=== PATIENT | male | born 2000 | race Caucasian/White ===

== ENCOUNTER 2018-03-08 03:33 | Emergency (ER) | payer BC ==
[2018-03-08 03:50] VITALS: TEMP 97.9
[2018-03-08] MEDS ORDERED: KETOROLAC TROMETHAMINE INJ 30 MG/ML VIAL IV ONE (03:56)
[2018-03-08] MEDS ORDERED: MORPHINE SULFATE INJ 10 MG/ML VIAL ONE (04:08)
[2018-03-08] MEDS ORDERED: MORPHINE SULFATE INJ 10 MG/ML VIAL IV ONE ×3 (04:08→04:54)
--- NOTE | 2018-03-08 04:09 | ED.PDOC ---
History of Present Illness - General Chief Complaint: Abdominal Pain Stated Complaint: right abdomen pain Time Seen by Provider: 03/08/18 03:55 Information Source: patient Exam Limitations: no limitations - History of Present Illness Initial Comments: Patient comes in today with severe abdominal pain that awoke him from sleep. Patient states about 2 AM he was suddenly awakened by feeling "like a donkey kicked him in his abdomen". Patient states the pain comes and goes but in severe waves of 10/10 with a sharpness in the quality and no radiation. He states he had a similar episode but nowhere near this severe to 3 months ago but it resolved on its own and no workup was performed at that time. He's had no nausea, emesis, or diarrhea. He denies any reflux or states he often does have abdominal distention and bloating after eating. Patient has no past medical history but did have a gastric sleeve surgery a year ago. Patient does not smoke but vapes, he does not drink nor take illicit drugs. He has no fever , chills, cough, or cold symptoms. Abdominal Pain Onset Location: RUQ Pain Radiation: no radiation Quality: severe, sharpness, waxing/waning Timing/Duration: 1-3 hours Improving Factors: nothing Worsening Factors: nothing Associated Symptoms: denies symptoms Review of Systems - Review of Systems Constitutional: States: no symptoms reported. Denies: chills, diaphoresis, fever, weakness EENTM: States: no symptoms reported. Denies: eye pain, nose congestion, throat pain Respiratory: States: no symptoms reported. Denies: cough, short of breath, wheezing Cardiology: States: no symptoms reported. Denies: chest pain, palpitations Gastrointestinal/Abdominal: States: see HPI. Denies: constipation, diarrhea, nausea, vomiting Genitourinary: States: no symptoms reported Musculoskeletal: States: no symptoms reported Skin: States: no symptoms reported Neurological: States: no symptoms reported Endocrine: States: no symptoms reported Past Medical History (General) - Patient Medical History Hx Seizures: No Hx Stroke: No Hx Dementia: No Hx Asthma: No Hx of COPD: No Hx Cardiac Disorders: No Hx Congestive Heart Failure: No Hx Pacemaker: No Hx Hypertension: No Hx Thyroid Disease: No Hx Diabetes: No Hx Gastroesophageal Reflux: No Hx Renal Disease: No Hx Cancer: No Hx of HIV: No Hx Hepatitis C: No Hx MRSA: No Surgical History: other - T&A, gastric sleeve - Vaccination History Hx Tetanus, Diphtheria Vaccination: Yes Hx Influenza Vaccination: No - Social History Hx Tobacco Use: Yes Hx Alcohol Use: No Family Medical History - Family History Mother Family History: Unknown Physical Exam - Physical Exam General Appearance: Alert, Obvious distress Eyes, Ears, Nose, Throat Exam: PERRL/EOMI, normal ENT inspection, TMs normal, pharynx normal Neck: non-tender, full range of motion, supple, normal inspection Respiratory: chest non-tender, lungs clear, normal breath sounds, no respiratory distress Cardiovascular/Chest: normal peripheral pulses, regular rate, rhythm, no edema, no gallop, no JVD, no murmur Gastrointestinal/Abdominal: normal bowel sounds, soft, other - non distended, TTP with no rebound or guarding in RUQ, negative heel tap Back Exam: normal inspection, no CVA tenderness Neurologic: alert, oriented x 3 Progress - Progress Progress: patient states pain has improved from a 10 to an 8 with the morphine that was previously given. He does still look very uncomfortable however. Discussed with him findings of cholelithiasis without acute cholecystitis or signs of obstruction. Patient does understand diagnosis and once we get pain under control plan is to have him follow-up as an outpatient for evaluation to decide if he requires surgical intervention. Patient should be on a low-fat diet in the meantime. 03/08/18 04:57 03/08/18 05:18 patient with pain resolution with second dose and will be discharged. - Results/Orders Results/Orders: 03/08/18 03:56 Abdoment/Pelvis w/o Contrast [CT] Stat Laboratory Results WBC 9.4 K/mm3 (4.8-10.8) 03/08/18 03:56 RBC 5.63 M/mm3 (4.70-6.10) 03/08/18 03:56 Hgb 15.1 gm/dL (14.0-18.0) 03/08/18 03:56 Hct 46.6 % (42.0-52.0) 03/08/18 03:56 MCV 82.7 fl (80.0-94.0) 03/08/18 03:56 MCH 26.9 pg (27.0-31.0) L 03/08/18 03:56 MCHC 32.5 g/dL (33.0-37.0) L 03/08/18 03:56 RDW 13.5 % (11.5-14.5) 03/08/18 03:56 Plt Count 184 K/mm3 (130-400) 03/08/18 03:56 MPV 10.6 fl (7.40-10.4) H 03/08/18 03:56 Absolute Neuts (auto) 5.60 K/uL (1.8-6.8) 03/08/18 03:56 Absolute Lymphs (auto) 2.60 K/uL (1.0-3.4) 03/08/18 03:56 Absolute Monos (auto) 0.80 K/uL (0.2-0.8) 03/08/18 03:56 Absolute Eos (auto) 0.40 K/uL (0.0-0.4) 03/08/18 03:56 Absolute Basos (auto) 0.10 K/uL (0.0-0.1) 03/08/18 03:56 Neutrophils % 59.3 % (42.0-78.0) 03/08/18 03:56 Lymphocytes % 27.7 % (20.0-50.0) 03/08/18 03:56 Monocytes % 8.1 % (2.0-9.0) 03/08/18 03:56 Eosinophils % 4.2 % (1.0-5.0) 03/08/18 03:56 Basophils % 0.7 % (0.0-2.0) 03/08/18 03:56 Sodium 140 mmol/L (135-145) 03/08/18 03:56 Potassium 3.5 mmol/L (3.6-5.0) L 03/08/18 03:56 Chloride 106 mmol/L (101-111) 03/08/18 03:56 Carbon Dioxide 26 mmol/L (21-31) 03/08/18 03:56 Anion Gap 11.5 (12-18) L 03/08/18 03:56 BUN 18 mg/dL (7-18) 03/08/18 03:56 Creatinine 0.97 mg/dL (0.6-1.3) 03/08/18 03:56 BUN/Creatinine Ratio 18.6 (10-20) 03/08/18 03:56 Random Glucose 107 mg/dL (70-105) H 03/08/18 03:56 Serum Osmolality 281.8 mOsm/L (275-295) 03/08/18 03:56 Calcium 9.2 mg/dL (8.4-10.2) 03/08/18 03:56 Total Bilirubin 0.5 mg/dL (0.2-1.0) 03/08/18 03:56 AST 16 IU/L (10-42) 03/08/18 03:56 ALT 24 IU/L (10-60) 03/08/18 03:56 Alkaline Phosphatase 62 IU/L (180-700) L 03/08/18 03:56 Serum Total Protein 6.8 gm/dL (6.4-8.2) 03/08/18 03:56 Albumin 4.1 g/dl (3.2-5.5) 03/08/18 03:56 Globulin 2.7 gm/dL (2.3-3.5) 03/08/18 03:56 Albumin/Globulin Ratio 1.5 (1.1-1.9) 03/08/18 03:56 Amylase 38 U/L (28-100) 03/08/18 03:56 Lipase 32 U/L (22-51) 03/08/18 03:56 Patient Name: HEDY FOREMAN Gender: Male Date of : 2000 Referring Physician: SKIP ACUÑA Organization: [facility] Accession Number: [id number] Requested Date: March 08, 2018 03:56 Report Status: Final Requested Procedure: 1 Procedure Description: Abdoment/Pelvis w/o Contrast Modality: CT Findings Reporting MD: Juan Chen Fellow MD: Not available Dictation Time: Entry Clerk: Not available Deputy Chief Counsel Date: EXAM DESCRIPTION: Abdoment/Pelvis w/o Contrast CLINICAL HISTORY:17 years Male, abdominal pain, RUQ Comparison: None TECHNIQUE: Contiguous axial images of the abdomen and pelvis were obtained followed by reconstruction images. This exam was performed according to our departmental dose-optimization program, which includes automated exposure control, adjustment of the mA and/or kV according to patient size and/or use of iterative reconstruction technique. FINDINGS: Lung bases: Lung bases are clear. Heart: Visualized heart is within normal limits in size. Liver:Unremarkable. No focal liver lesion. Gallbladder:Gallstones. No CT evidence of cholecystitis. Spleen:Unremarkable Pancreas: Pancreas is unremarkable. Adrenal glands:Within normal limits. Kidneys/ureters:Within normal limits Bladder:Unremarkable. Pelvic organs: No acute abnormality Vascular structures: within normal limits Peritoneum: No free fluid. Lymph nodes: No abnormal lymph nodes. Stomach/small bowel/colon: Postsurgical changes in the stomach. Small bowel is unremarkable. Colon is unremarkable. Appendix: No evidence of appendicitis. Bones: No acute osseous abnormality. Soft tissues: Unremarkable.. IMPRESSION: No acute intra-abdominal abnormality. Electronically signed by: Juan Chen DO 03/08/2018 4:40 AM CDT Departure - Departure Clinical Impression: Gallbladder attack Cholelithiasis Qualifiers: Cholelithiasis location: gallbladder Cholecystitis presence: without cholecystitis Biliary obstruction: without biliary obstruction Qualified Code(s) : K80.20 - Calculus of gallbladder without cholecystitis without obstruction Disposition: Discharge to Home or Self Care Condition: Good Departure Forms: ED Discharge - Pt. Copy, Patient Portal Self Enrollment Instructions: DI for Abdominal Pain-Adult Diet: low fat, low cholesterol Home Medications: Ambulatory Orders NK [NK] 03/08/18 Additional Instructions: return to ER for return of severe pain, intractable emesisarea follow-up with PCP on Friday to discuss the further treatment necessary. Low-fat diet in the meantime.
--- NOTE | 2018-03-08 04:42 | CT ---
EXAM DESCRIPTION: Abdoment/Pelvis w/o Contrast CLINICAL HISTORY:17 years Male, abdominal pain, RUQ Comparison: None TECHNIQUE: Contiguous axial images of the abdomen and pelvis were obtained followed by reconstruction images. This exam was performed according to our departmental dose-optimization program, which includes automated exposure control, adjustment of the mA and/or kV according to patient size and/or use of iterative reconstruction technique. FINDINGS: Lung bases: Lung bases are clear. Heart: Visualized heart is within normal limits in size. Liver:Unremarkable. No focal liver lesion. Gallbladder:Gallstones. No CT evidence of cholecystitis. Spleen:Unremarkable Pancreas: Pancreas is unremarkable. Adrenal glands:Within normal limits. Kidneys/ureters:Within normal limits Bladder:Unremarkable. Pelvic organs: No acute abnormality Vascular structures: within normal limits Peritoneum: No free fluid. Lymph nodes: No abnormal lymph nodes. Stomach/small bowel/colon: Postsurgical changes in the stomach. Small bowel is unremarkable. Colon is unremarkable. Appendix: No evidence of appendicitis. Bones: No acute osseous abnormality. Soft tissues: Unremarkable.. IMPRESSION: No acute intra-abdominal abnormality. Electronically signed by: Juan Chen DO 03/08/2018 4:40 AM CDT
[2018-03-08] MEDS ORDERED: ONDANSETRON ODT 8 MG TAB SL ONE (04:59)
[2018-03-08 05:54] VITALS: BP 124/76; O2SAT 99
== END 2018-03-08 05:56 | disposition home or self-care (01) ==
LOC: ER 03:33
DX: K80.20 Calculus of gallbladder without cholecystitis without obstruction (principal); Z87.891 Personal history of nicotine dependence
CPT/HCPCS: 36415; 74176; 80053; 82150; 83690; 85025; J1885; J2270

== ENCOUNTER 2018-03-09 10:19 | Inpatient (IN) | payer BC, OTHER ==
[2018-03-09] MEDS ORDERED: PIPERACILLIN/TAZOBACTAM 3.375 GM in SODIUM CHLORIDE 0.9% 100ML 100 ML IVPB ONE (10:45)
[2018-03-09] MEDS ORDERED: ONDANSETRON ODT 8 MG TAB SL ONE (10:45)
[2018-03-09] MEDS ORDERED: MORPHINE SULFATE INJ 10 MG/ML VIAL IV ONE (10:45)
[2018-03-09] MEDS ORDERED: KETOROLAC TROMETHAMINE INJ 30 MG/ML VIAL IV ONE (10:45)
[2018-03-09] MEDS ORDERED: SODIUM CHLORIDE 0.9% 1000ML 1,000 ML IVS ONE (10:46)
--- NOTE | 2018-03-09 11:17 | RAD ---
EXAM DESCRIPTION: Abdomen Series CLINICAL HISTORY: 17 years Male, ruq pain, fever, hx of sleeve COMPARISON: None. FINDINGS: Three views to include an upright view of the chest and two views of the abdomen demonstrate clear lung dillon without free abdominal air or basilar lung disease or effusion. Heart size is normal. Two views of the abdomen demonstrate a normal bowel gas pattern. A moderate air-fluid level within the stomach is present in the left upper quadrant and a surgical suture row along the lateral margin of the gastric fundus and body is evident. No evidence of small bowel obstruction is seen. No specific right upper quadrant abnormality is noted. Modest fluid within the stomach is suspected. Bony structures are normal. IMPRESSION: Moderate fluid and air-fluid level in the gastric fundus with evidence of a gastric surgery along the greater curvature of the proximal stomach. Otherwise normal abdomen two views with chest one view. Electronically signed by: Alberto Barlow MD 03/09/2018 11:15 AM CDT
[2018-03-09] MEDS ORDERED: PIPERACILLIN/TAZOBACTAM 3.375 GM VIAL IVPB ONE (11:23)
[2018-03-09] MEDS ORDERED: SODIUM CHLORIDE 0.9% 100ML 100 ML IVPB ONE (11:25)
--- NOTE | 2018-03-09 13:34 | US ---
EXAM DESCRIPTION: Abdomen,Limited CLINICAL HISTORY: eval liver, gb, fever, pain COMPARISON: None Available. TECHNIQUE: Right upper quadrant ultrasound] FINDINGS: The liver has a normal appearance. There is no bile duct dilatation. The common bile duct measures 3.5 mm. Gallstones are identified in the gallbladder The pancreas has a normal appearance. The upper abdominal aorta and the inferior vena cava are unremarkable. The right kidney is normal in size, shape, and echotexture. IMPRESSION: Cholelithiasis Electronically signed by: Jostin Reyes MD 03/09/2018 1:33 PM CDT
[2018-03-09] MEDS ORDERED: ACETYLCYSTEIN 20 % 6,000 MG/30 ML VIAL PO ONE (13:39)
--- NOTE | 2018-03-09 14:18 | CT ---
EXAM DESCRIPTION: Abdomen/Pelvis w/Contrast CLINICAL HISTORY: 17 years Male, ruq pain, fever, leukocytosis, hx sleeve COMPARISON: 08 March 2018 TECHNIQUE: Transaxial images were obtained with intravenous and without oral contrast media. Sagittal and coronal reconstruction was performed.This exam was performed according to our departmental dose-optimization program, which includes automated exposure control, adjustment of the mA and/or kV according to patient size and/or use of iterative reconstruction technique. FINDINGS: The lung bases are clear. The liver and spleen are normal in appearance. The exam reveals evidence of prior surgery in the region of the gastroesophageal junction. Gallstones are observed in the gallbladder. Inflammatory changes are observed about the gallbladder. A tiny amount of free fluid is observed at the inferior margin of the liver. The spleen is normal in appearance. The pancreas is normal in appearance. No adrenal masses are detected. Imaging of the kidneys reveals no evidence of hydronephrosis mass cyst or calcification. No inguinal region abnormality is detected. The appendix is identified and is normal in appearance. Small amount free fluid is also observed in the pelvis. No bone abnormality is seen. IMPRESSION: 1. Cholelithiasis with evidence suggesting cholecystitis. 2. A small amount of free fluid is observed in the abdomen. 3. The exam reveals evidence of prior surgery at the level of the gastroesophageal junction. Electronically signed by: Jostin Reyes MD 03/09/2018 2:16 PM CDT
--- NOTE | 2018-03-09 14:53 | ED.PDOC ---
History of Present Illness - General Chief Complaint: Abdominal Pain Time Seen by Provider: 03/09/18 10:20 Source: patient Exam Limitations: no limitations - History of Present Illness Initial Comments: the patient's and 17-year-old male presenting to the emergency room secondary to right upper quadrant pain has been present for 2-3 days. Over the last 12 hours he has started developing some fever and some nausea and vomiting. Pain has been progressive. He was actually seen here a little more than 30 hours ago with an appropriate workup including blood work and a CT scan that did not show any definitive pathology other than just gallstones. The patient has obviously worsened over that timeframe. He has had a gastric sleeve in the past otherwise he reports no significant past medical history. Timing/Duration: other - 2-3 days Severity: moderate Improving Factors: nothing Worsening Factors: eating Associated Symptoms: diaphoresis, fever/chills, loss of appetite, malaise, nausea/vomiting Allergies/Adverse Reactions: Allergies NO KNOWN ALLERGY Allergy (Verified 03/08/18 03:50) Home Medications: Ambulatory Orders NK [NK] 03/08/18 Review of Systems - Review of Systems Constitutional: States: fever, malaise EENTM: States: no symptoms reported Respiratory: States: no symptoms reported Cardiology: States: no symptoms reported Gastrointestinal/Abdominal: States: abdominal pain, nausea, vomiting Genitourinary: States: no symptoms reported Musculoskeletal: States: no symptoms reported Skin: States: no symptoms reported Neurological: States: no symptoms reported Endocrine: States: no symptoms reported All other Systems: No Change from Baseline Past Medical History (General) - Patient Medical History Hx Seizures: No Hx Stroke: No Hx Dementia: No Hx Asthma: Yes Hx of COPD: No Hx Cardiac Disorders: No Hx Congestive Heart Failure: No Hx Pacemaker: No Hx Hypertension: No Hx Thyroid Disease: No Hx Diabetes: No Hx Gastroesophageal Reflux: No Hx Renal Disease: No Hx Cancer: No Hx of HIV: No Hx Hepatitis C: No Hx MRSA: No - Vaccination History Hx Tetanus, Diphtheria Vaccination: No Hx Influenza Vaccination: No Hx Pneumococcal Vaccination: No Immunizations Up to Date: No - Social History Hx Tobacco Use: No Hx Chewing Tobacco Use: No Hx Alcohol Use: No Hx Substance Use: No Hx Substance Use Treatment: No Hx Depression: No Feels Threatened In Home Enviroment: No Feels Threatened In a Relationship: No Hx Physical Abuse: No Hx Emotional Abuse: No Hx Suspected Abuse: No - Activities of Daily Living Hospice Agency (if applicable):: None - Female History Patient is a Female of Child Bearing Age (10 -59 yrs old): No Patient : No Family Medical History - Family History Mother Family History: Unknown Physical Exam - Physical Exam General Appearance: Alert, Ill Appearing Eye Exam: bilateral normal Ears, Nose, Throat: hearing grossly normal, normal ENT inspection, normal pharynx Neck: full range of motion, supple Respiratory: lungs clear, normal breath sounds, no respiratory distress, no accessory muscle use Cardiovascular/Chest: normal peripheral pulses, regular rate, rhythm, no edema Peripheral Pulses: radial,right: 2+, radial,left: 2+, dorsalis pedis,right: 2+, dorsalis pedis,left: 2+ Gastrointestinal/Abdominal: soft, other - abdominal pain worse in the right upper quadrant. He does have some voluntary guarding. No definite palpable mass. 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, alert, normal mood/affect, oriented x 3 Skin Exam: normal color Comments: Vital Signs - 24 hr 03/09/18 03/09/18 03/09/18 10:19 11:20 11:51 Temperature 100.3 F H Pulse Rate [ 89 94 H 96 H Apical] Respiratory 18 20 16 Rate Blood Pressure 142/85 136/89 137/94 [Left Arm] O2 Sat by Pulse 98 98 96 Oximetry 03/09/18 03/09/18 03/09/18 12:52 13:20 14:20 Temperature Pulse Rate [ 81 58 L 68 Apical] Respiratory 98 H 16 18 Rate Blood Pressure 115/84 136/80 130/82 [Left Arm] O2 Sat by Pulse 98 96 99 Oximetry Progress - Progress Progress: 03/09/18 14:55 the patient is a 17-year-old male presenting to the emergency room with what appears to be acute cholecystitis. Blood cultures have been taken. He has received a liter of IV fluids. He has been started on Zosyn. I have contacted Dr. Haro, with general surgery. The patient will be admitted for IV antibiotics. Surgery will evaluate later this evening. - Results/Orders Results/Orders: acute abdominal series shows no acute pathology. Right upper quadrant ultrasound fails to demonstrate any pathology. CT scan does confirm changes consistent with cholecystitis. Laboratory Tests 03/09/18 03/09/18 03/09/18 10:50 10:50 10:50 WBC 15.7 H D RBC 6.17 H Hgb 16.6 Hct 51.0 MCV 82.7 MCH 26.9 L MCHC 32.5 L RDW 13.4 Plt Count 191 MPV 10.6 H Absolute Neuts (auto) 13.10 H Absolute Lymphs (auto) 0.90 L Absolute Monos (auto) 1.50 H Absolute Eos (auto) 0.10 Absolute Basos (auto) 0.00 Neutrophils % 83.7 H Lymphocytes % 5.9 L Monocytes % 9.7 H Eosinophils % 0.4 L Basophils % 0.3 PT INR PTT (SP) D-Dimer, Quantitative Sodium 137 Potassium 3.8 Chloride 99 L Carbon Dioxide 29 Anion Gap 12.8 BUN 8 Creatinine 0.68 BUN/Creatinine Ratio 11.8 Random Glucose 112 H Serum Osmolality 272.9 L Lactic Acid 1.0 Calcium 9.6 Total Bilirubin 1.9 H D AST 51 H D ALT 111 H D Alkaline Phosphatase 86 L D Creatine Kinase 90 CK-MB (CK-2) 0.6 CK-MB (CK-2) % Not Reportable Troponin I < 0.02 Serum Total Protein 8.5 H Albumin 4.8 Globulin 3.7 H Albumin/Globulin Ratio 1.3 Amylase 27 L Lipase 03/09/18 03/09/18 10:50 10:50 WBC RBC Hgb Hct MCV MCH MCHC RDW Plt Count MPV Absolute Neuts (auto) Absolute Lymphs (auto) Absolute Monos (auto) Absolute Eos (auto) Absolute Basos (auto) Neutrophils % Lymphocytes % Monocytes % Eosinophils % Basophils % PT 10.4 INR 1.04 PTT (SP) 32.7 H D-Dimer, Quantitative 0.62 H* Sodium Potassium Chloride Carbon Dioxide Anion Gap BUN Creatinine BUN/Creatinine Ratio Random Glucose Serum Osmolality Lactic Acid Calcium Total Bilirubin AST ALT Alkaline Phosphatase Creatine Kinase CK-MB (CK-2) CK-MB (CK-2) % Troponin I Serum Total Protein Albumin Globulin Albumin/Globulin Ratio Amylase Lipase 20 L D - EKG/XRAY/CT CT Ordered: No CT Interpretation Call Back: No Departure - Departure Clinical Impression: Cholecystitis, acute Disposition: Admit Patient Home Medications: Ambulatory Orders NK [NK] 03/08/18 Decision To Admit - Decistion To Admit Decision to Admit Reason: Medical Nature Decision to Admit Date: 03/09/18 Decision to Admit Time: 14:56
--- NOTE | 2018-03-09 15:21 | HP ---
SUPERVISING PHYSICIAN: Eyal Murray MD CHIEF COMPLAINT: Right upper quadrant abdominal pain. HISTORY OF PRESENT ILLNESS: This is a 17 year-old male patient who came in the Emergency Room today for continued right upper quadrant abdominal pain. He actually came to the Emergency Room yesterday with the same complaint. CT abdomen and pelvis at that time did not reveal any acute abnormalities. He was showing to have a normal white count at that time. He went to [facility] today and was subsequently sent to the hospital here once again for reevaluation. When he came into the Emergency Room today his workup included laboratory as well as a repeat CT scan of the abdomen and pelvis. He was shown to have a white count of 15.7, hemoglobin 16.6, hematocrit 51.0, platelet count 191,000. His chemistries showed an elevated bilirubin of 1.9, AST of 51, ALT of 111 with a normal amylase and lipase. CT scan of the abdomen and pelvis showed cholelithiasis with evidence of cholecystitis. The Emergency Room physician called Dr. Haro as the surgeon and he recommended the patient be admitted and placed on IV antibiotics and he would evaluate the patient later today. On final examination, the patient is still having some right upper quadrant abdominal pain. He states the morphine helped initially in the Emergency Room but it has been several hours since he got a dose of that. He is in no active distress and his vital signs are acceptable. PAST MEDICAL HISTORY: Asthma and morbid obesity but he has had a gastric sleeve last December. PAST SURGICAL HISTORY: Gastric sleeve in December of 2016, tonsillectomy and adenoidectomy. CURRENT MEDICATIONS: He states he uses a Rescue inhaler at home but he is not on any maintenance medication. ALLERGIES: NO KNOWN DRUG ALLERGIES. FAMILY HISTORY: Obesity, hypertension and diabetes. SOCIAL HISTORY: He is a nondrinker, nonsmoker, no illicit drugs. REVIEW OF SYSTEMS: CONSTITUTIONAL: Positive for fever and chills. No recent weight loss or weight loss or weight gain other than the intended weight loss with a gastric sleeve. HEENT: No headaches, vision changes, ear pain, nasal congestion or throat pain. RESPIRATORY: No cough or hemoptysis reported. No chest pain. CARDIOVASCULAR: No chest pain, palpitations or peripheral edema. GI: Positive for the abdominal pain. Positive for nausea, no vomiting. : No dysuria, frequency or flank pain. HEMATOLOGIC: No easy bruising, no transfusion reaction. MUSCULOSKELETAL: No muscle cramps, joint pain or joint swelling. ENDOCRINE: No polydipsia, polyuria or polyphagia. No heat or cold intolerance. NEUROLOGIC: No seizures, paresthesias or syncope. PHYSICAL EXAMINATION: VITAL SIGNS: Blood pressure 123/67, heart rate 86, respiratory rate 18, temperature 98.6, oxygen saturation 98%. GENERAL: Mr. Zamora is a 17 year-old male patient who is in no acute distress currently. HEENT: Atraumatic and normocephalic. Eyes: pupils equal and reactive. Nose: no drainage. Throat: moist mucosa. NECK: Supple, midline trachea. No jugular venous distention. CHEST: Symmetrical with equal rise and fall with inspiration and expiration. Lung sounds clear to auscultation bilaterally. CARDIOVASCULAR: Regular rate and rhythm. Normal S1 and S2. ABDOMEN: Soft, positive bowel sounds. Right upper quadrant tenderness to palpation. : Exam deferred. EXTREMITIES: Lower extremities with no edema. NEUROLOGIC: The patient is alert and oriented, moves all extremities. Extraocular movements are intact. Labs and films are as discussed in history of present illness. ASSESSMENT: 1. Acute cholecystitis with cholelithiasis. 2. History of asthma without acute exacerbation. 3. History of morbid obesity status post gastric sleeve. PLAN: At this time we will admit the patient and place on empiric antibiotics with Levaquin as well as Flagyl. Dr. Haro has been consulted. Will provide pain medication of morphine as it was effective in the Emergency Room. Will recheck blood work in the morning as well and I anticipate that the patient will actually go for cholecystitis, however, will await the decision by Dr. Haro before signing any consent. #[id number] [facility]
[2018-03-09] MEDS ORDERED: IV SET AND CAP CHANGE INJ INJ SCH (16:00)
[2018-03-09] MEDS ORDERED: metroNIDAZOLE IV PREMIX 500MG 100 ML IVPB ONE ×2 (16:16→19:43)
[2018-03-09] MEDS: KCL 10 MEQ/D5 1/2NS 1,000 ML IVS PRN (16:20)
[2018-03-09] MEDS: metroNIDAZOLE IV PREMIX 500MG 500 MG in PREMIX BAG 1 BAG IVPB SCH (16:20)
[2018-03-09] MEDS ORDERED: levoFLOXacin 500MG IV 100 ML IVPB ONE (17:13)
[2018-03-09] MEDS: MORPHINE SULFATE INJ 10 MG/ML VIAL IV PRN ×2 (17:24→21:05)
[2018-03-09] MEDS: ONDANSETRON INJ 4 MG/2 ML VIAL IV PRN (17:25)
[2018-03-09] MEDS: levoFLOXacin 500MG IV 500 MG in PREMIX BAG 1 BAG IVPB SCH (17:28)
[2018-03-09] MEDS: SODIUM CHLORIDE 0.9% (FLUSH) 10 ML SYG IV PRN (21:05)
[2018-03-09] MEDS ORDERED: CHLORHEXIDINE GLUCONATE 4 % 15 ML UD TOP ONE (23:47)
[2018-03-10] MEDS: metroNIDAZOLE IV PREMIX 500MG 500 MG in PREMIX BAG 1 BAG IVPB SCH ×3 (00:14→16:16)
[2018-03-10] MEDS: SODIUM CHLORIDE 0.9% (FLUSH) 10 ML SYG IV PRN ×2 (00:15→05:33)
[2018-03-10] MEDS: MORPHINE SULFATE INJ 10 MG/ML VIAL IV PRN ×2 (00:15→05:30)
[2018-03-10] MEDS: ONDANSETRON INJ 4 MG/2 ML VIAL IV PRN (00:16)
[2018-03-10] MEDS: KCL 10 MEQ/D5 1/2NS 1,000 ML IVS PRN (05:10)
[2018-03-10] MEDS ORDERED: ACETAMINOPHEN 325 MG TAB PO ONE (05:35)
[2018-03-10] MEDS ORDERED: metroNIDAZOLE IV PREMIX 500MG 100 ML IVPB ONE ×3 (07:28→23:55)
[2018-03-10] MEDS ORDERED: LIDOCAINE 1% 10 ML VIAL INJ ONE (10:00)
[2018-03-10] MEDS ORDERED: raNITIdine HCL INJ 25 MG/ML VIAL IV ONE (10:00)
[2018-03-10] MEDS ORDERED: KETOROLAC TROMETHAMINE INJ 30 MG/ML VIAL IV ONE (10:00)
[2018-03-10] MEDS ORDERED: PROPOFOL 200 MG/20 ML VIAL IV ONE (10:00)
[2018-03-10] MEDS ORDERED: METOCLOPRAMIDE HCL INJ 10 MG/2 ML VIAL IV ONE (10:00)
[2018-03-10] MEDS ORDERED: DEXAMETHASONE INJ 10 MG/ML VIAL IV ONE (10:00)
--- NOTE | 2018-03-10 10:29 | PN ---
DATE: 03/10/18 SUPERVISING PHYSICIAN: Eyal Murray MD SUBJECTIVE: The patient states he still has some right upper quadrant pain. No significant nausea or vomiting overnight. OBJECTIVE: Blood pressure today 126/76, heart rate 83, respiratory rate 20, temperature 102.2. Oxygen saturation 96%. GENERAL: Mr. Zamora is a 17 year-old male patient in no distress. NEUROLOGICAL: The patient is alert and oriented. LUNGS are clear. CARDIOVASCULAR: Regular rate and rhythm. Normal S1 and S2. ABDOMEN: Right upper quadrant tenderness to palpation. EXTREMITIES: Lower extremity with 2+ pulses, capillary refill less than 2 seconds. LABORATORY: Labs reviewed show a white count of 14.3, hemoglobin 14.4, hematocrit 44.5. Platelet count 169,000. Chemistries show sodium 137, potassium 3.9, chloride 104, C02 of 28, BUN 10, creatinine 0.98, glucose 98. Calcium 8.7. Bilirubin 2.7, AST 70, ALT 177. Alkaline phosphatase 115. ASSESSMENT: 1. Cholelithiasis with cholecystitis, acute. 2. History of asthma without acute exacerbation. 3. History of morbid obesity status post gastric sleeve. PLAN: Dr. Haro has been consulted and plans on cholecystectomy. Will continue current antibiotics and IV fluids. [facility][id number] [facility]
[2018-03-10] MEDS ORDERED: HEPARIN SODIUM (PORCINE) 10,000 UNITS/ML VIAL ONE (11:59)
[2018-03-10] MEDS ORDERED: BUPIVACAINE 0.25% W/EPI 50 ML VIAL INJ ONE (11:59)
[2018-03-10] MEDS ORDERED: fentaNYL CITRATE INJ 50 MCG/ML AMP ONE (12:06)
[2018-03-10] MEDS ORDERED: MIDAZOLAM INJ 2 MG/2 ML VIAL ONE (12:06)
[2018-03-10] MEDS ORDERED: ROCURONIUM BROMIDE 10 MG/ML VIAL ONE ×2 (12:07→13:25)
[2018-03-10] MEDS ORDERED: ELECTROLYTE-A 1,000 ML IVS ONE ×2 (12:28→14:56)
[2018-03-10] MEDS ORDERED: HYDROmorphone HCL INJ 2 MG/ML VIAL ONE (12:57)
--- NOTE | 2018-03-10 13:13 | CONS ---
DATE OF CONSULTATION: 03/10/18 REFERRING PHYSICIAN: Hospital [facility] HISTORY OF PRESENT ILLNESS: The patient is a 17-year-old male with right upper quadrant pain that developed approximately 36 hours prior to the patient's admission last night. His pain is described as coming in waves. It radiates to the back. He does not really associate it with fatty meals, however, he did have a fatty meal prior to the onset of this specific episode. He is just over a year status post a gastric sleeve done by Dr. Pugh in [place]. He has lost 130 pounds. There is no history of hepatitis or jaundice otherwise. PAST MEDICAL HISTORY: 1. Asthma. PAST SURGICAL HISTORY: 1. Tonsillectomy and adenoidectomy. CURRENT MEDICATIONS: He takes no routine medications. ALLERGIES: NO KNOWN DRUG ALLERGIES. FAMILY HISTORY: Positive for diabetes, hypertension. SOCIAL HISTORY: He does not drink, smoke or do drugs. REVIEW OF SYSTEMS: Fever and chills prior to admission with associated nausea. There are no problems with voiding, no problems with chest pain or shortness of breath. There is no blood in his urine, stool or in vomitus. He has no history of melanotic stools. Weight loss as noted from his surgery. PHYSICAL EXAMINATION: GENERAL: The patient is awake, alert, cooperative, in mild to moderate distress. VITAL SIGNS: The patient is currently afebrile. He was febrile last night to 102. HEENT: Sclerae nonicteric. Mucous membranes moist. NECK: Without adenopathy. BACK: Without CVA tenderness. CHEST: Equal breath sounds bilaterally. HEART: Regular rate and rhythm. ABDOMEN: Soft. Tender in the right upper quadrant without mass. There is mild guarding. RECTAL: Deferred. EXTREMITIES: Without cyanosis, clubbing or edema. LABORATORY: Ultrasound reveals gallstones. CT scan reveals inflammatory process around the gallbladder and a normal appendix. Lab today reveals white blood cell count down to 14,000, hemoglobin down to 14, platelet count 169,000, 80% neutrophils. Chemistries show bilirubin has gone up from 1.9 to 2.7. AST is 70 from 51. ALT is 177 from 111. Alkaline phosphatase 150 from 86. Amylase and lipase were both normal yesterday. ASSESSMENT: 1. Acute cholecystitis, rule out choledocholithiasis. PLAN: The risks, benefits and alternatives to laparoscopic cholecystectomy with cholangiography were discussed and accepted by the patient in the presence of his girlfriend. He has been given Flagyl and Levaquin. His questions have been answered. Surgery will be today. [facility][id number] [facility]
[2018-03-10] MEDS ORDERED: SUGAMMADEX SODIUM 200 MG/2 ML VIAL IV ONE (15:00)
[2018-03-10] MEDS ORDERED: ONDANSETRON INJ 4 MG/2 ML VIAL IV PRN (15:05)
--- NOTE | 2018-03-10 15:37 | OP ---
DATE OF PROCEDURE: 03/10/18 PREOPERATIVE DIAGNOSIS: 1. Cholelithiasis. 2. Acute cholecystitis. POSTOPERATIVE DIAGNOSIS: 1. Cholelithiasis. 2. Acute cholecystitis. 3. Gangrenous cholecystitis and probable perforation. PROCEDURE: 1. Laparoscopic cholecystectomy with intraoperative cholangiography using fluoroscopy. SURGEON: Rodrigo Haro MD. FULL STACK SOFTWARE DEVELOPER: None. ANESTHESIA: Local infiltration of 0.25% Marcaine with epinephrine and general endotracheal anesthesia. INDICATION: The patient is a 17-year-old male who underwent a gastric sleeve procedure just over a year ago and lost 130 pounds. He began having right upper quadrant pain with radiation to the back, classic for gallbladder disease , fatty food intolerance and presented to the Emergency Room the day before yesterday where he had a normal white count. He was discharged home. He came back and had a CT and an ultrasound which showed acute cholecystitis and cholelithiasis. He was admitted, hydrated overnight and started on IV Levaquin and Flagyl. The patient was brought to the Surgical Suite today for cholecystectomy after the risks, benefits and alternatives to the procedure were discussed and accepted. FINDINGS: The gallbladder wall was gangrenous. There was bilious fluid within the abdominal cavity. Intraoperative cholangiography revealed free flow into the duodenum with no filling defects or strictures noted. There were multiple small stones within the gallbladder. DESCRIPTION OF PROCEDURE: After adequate general endotracheal anesthesia was obtained, the patient was prepped and draped in the usual sterile manner. The infraumbilical area was infiltrated with local anesthesia. A curvilinear incision was fashioned and carried down through the subcutaneous tissue to the midline fascia. Traction sutures were placed on either side of the midline. A small incision was made in the midline fascia and the peritoneum was opened bluntly. Anya trocar was introduced under direct vision into the abdominal cavity and fixed in place with the 20 mL balloon. CO2 was then insufflated until a pressure of 12 mmHg was reached and the abdomen was tympanitic in all four quadrants. When this was done, the laparoscope was introduced. The abdomen was inspected. The upper abdominal ports were placed under direct vision. The adhesions to the anterior abdominal wall were taken down bluntly with no problem, as were the adhesions to the gallbladder. The bilious fluid, some was aspirated immediately upon entering the abdomen. At this point, the gallbladder was grasped, retracted anteriorly and laterally. The neck of the gallbladder was retracted laterally. The adhesions in the area of the neck of the gallbladder were bluntly taken down. Dissecting from anterior, a duct-like tubular structure was identified. A small incision was made with the scissors and there was pulsatile bleeding, so it was clipped proximally and distally and divided. Dissection was carried farther superiorly and another ductal structure was identified. It was dissected free, clamped proximally. A small incision was made and then the cystic duct catheter was introduced through the separate stab wound in the right upper quadrant and introduced eventually into the cystic duct and clamped in place. Cholangiograms were then taken using fluoroscopy which revealed free flow into the duodenum with no filling defects or strictures identified. When this was done, the cystic duct catheter was removed. The cystic duct was hemoclipped three times distally and divided between the hemoclips. The cystic artery had been divided. The gallbladder was then dissected free from the gallbladder bed of the liver with some difficulty with some loss of stones which were meticulously picked up using suction and grasper. When this was done, subhepatic space and subphrenic space were irrigated copiously with saline. The effluent was noted to be clear. The simone hepatis and the gallbladder bed of the liver were both inspected. Adequate hemostasis was noted. No bile leak was identified. At this point, the upper abdominal ports were removed under direct vision and good hemostasis was noted. At this point, the CO2, the laparoscope and the infraumbilical port were removed. The infraumbilical port site fascia was approximated with a single [id number] suture of 0 Vicryl. Subcutaneous tissue was irrigated with saline. Skin edges were approximated with skin gianni due to the infectious nature of the gallbladder. Sterile dressings were applied. The patient was awakened and taken to the Recovery Room in good and stable condition. Estimated blood loss was likely 150 mL. All sponge, needle and instrument counts were correct. [facility][id number] [facility]
[2018-03-10] MEDS: LACTATED RINGERS 1,000 ML IVS PRN (16:11)
[2018-03-10] MEDS: PANTOPRAZOLE SODIUM IV 40 MG VIAL IV SCH (16:13)
[2018-03-10] MEDS ORDERED: levoFLOXacin 500MG IV 100 ML IVPB ONE (17:16)
[2018-03-10] MEDS: levoFLOXacin 500MG IV 500 MG in PREMIX BAG 1 BAG IVPB SCH (17:30)
[2018-03-10] MEDS: HYDROmorphone HCL INJ 2 MG/ML VIAL IV PRN ×2 (20:51→22:06)
[2018-03-11] MEDS: metroNIDAZOLE IV PREMIX 500MG 500 MG in PREMIX BAG 1 BAG IVPB SCH ×3 (00:09→15:29)
[2018-03-11] MEDS: SODIUM CHLORIDE 0.9% (FLUSH) 10 ML SYG IV PRN (00:11)
[2018-03-11] MEDS: HYDROmorphone HCL INJ 2 MG/ML VIAL IV PRN ×2 (02:18→06:24)
[2018-03-11] MEDS: LACTATED RINGERS 1,000 ML IVS PRN ×2 (04:38→13:00)
[2018-03-11] MEDS: PANTOPRAZOLE SODIUM IV 40 MG VIAL IV SCH (06:06)
[2018-03-11] MEDS ORDERED: metroNIDAZOLE IV PREMIX 500MG 100 ML IVPB ONE ×3 (06:32→20:06)
--- NOTE | 2018-03-11 11:11 | PN ---
SUPERVISING PHYSICIAN: Miroslava Murray MD DATE: 03/11/18 SUBJECTIVE: The patient is sitting up in his bed. He has complaints of some soreness of his abdomen, but not unexpected. He denies nausea, vomiting, diarrhea or constipation. OBJECTIVE: VITAL SIGNS: Afebrile. Heart rate 54. Blood pressure 120/21. Respiratory rate 18. O2 saturation 96% on room air. RESPIRATORY: Essentially clear to auscultation bilaterally. CARDIAC: Regular rate and rhythm. GASTROINTESTINAL: Abdomen is slightly tender. He has surgical bandages in place. Bowel sounds are positive. EXTREMITIES: No cyanosis, clubbing or edema. NEUROLOGIC: Awake, alert and oriented times three. LABORATORY: WBCs 15.2, hemoglobin 13.5, hematocrit 41.7, neutrophils 91.8. Electrolytes are basically within normal limits and his bilirubin is slightly elevated at 1.5, but improved since yesterday. AST is 77, ALT 176. Alkaline phosphatase 138. Preliminary blood cultures show no growth after 24 hours. All other labs and films have been reviewed via the EMR. ASSESSMENT: 1. Cholelithiasis with cholecystitis, acute, status post cholecystectomy per Dr. Haro, general surgeon, postoperative day 1. 2. History of asthma without exacerbation. 3. History of morbid obesity status post gastric sleeve. PLAN: We will continue present supportive care. Operative issues will be per Dr. Haro, general surgeon. He is advancing his diet. I have also ordered some lab for in the morning. I have encouraged good pulmonary hygiene and frequent walking in the hallways. We will continue to monitor the patient closely and follow as needed. Dr. Murray is the collaborating physician and available for consultation. #[id number] [facility]
[2018-03-11] MEDS: HYDROcodone 5MG/APAP 325MG 1 EA TAB PO PRN ×2 (15:14→21:49)
[2018-03-11] MEDS ORDERED: levoFLOXacin 500MG IV 100 ML IVPB ONE (15:22)
[2018-03-11] MEDS: levoFLOXacin 500MG IV 500 MG in PREMIX BAG 1 BAG IVPB SCH (17:00)
[2018-03-12] MEDS: metroNIDAZOLE IV PREMIX 500MG 500 MG in PREMIX BAG 1 BAG IVPB SCH ×2 (00:16→07:47)
[2018-03-12] MEDS: SODIUM CHLORIDE 0.9% (FLUSH) 10 ML SYG IV PRN (00:17)
[2018-03-12] MEDS: HYDROcodone 5MG/APAP 325MG 1 EA TAB PO PRN (01:43)
[2018-03-12] MEDS: LACTATED RINGERS 1,000 ML IVS PRN (05:22)
[2018-03-12] MEDS: PANTOPRAZOLE SODIUM IV 40 MG VIAL IV SCH (06:19)
[2018-03-12] MEDS ORDERED: metroNIDAZOLE IV PREMIX 500MG 100 ML IVPB ONE (07:18)
[2018-03-12 10:06] VITALS: BP 104/56; TEMP 97.5; O2SAT 99
--- NOTE | 2018-03-12 11:16 | DS ---
SUPERVISING PHYSICIAN: Miroslava Murray MD DISCHARGE DIAGNOSIS: 1. Cholelithiasis with cholecystitis, acute, status post cholecystectomy per Dr. Haro, general surgeon, postoperative day 2. 2. History of asthma without exacerbation. 3. History of morbid obesity status post gastric sleeve. HISTORY OF PRESENT ILLNESS: This is a 17-year-old male patient who came in the Emergency Room on date of admission for continued right upper quadrant abdominal pain. He had been to the Emergency Room the prior day and with the same complaints and showed no acute abnormalities. He had a normal white count at that time. He went to [facility] on date of admission and was subsequently sent to the hospital here once again for reevaluation. On the date of admission, his workup included laboratory as well as a repeat CT scan of the abdomen and pelvis. He was shown to have a white count of 15.7, hemoglobin 16.6, hematocrit 51.0, platelet count 191,000. His chemistries showed an elevated bilirubin of 1.9, AST of 51, ALT of 111 with a normal amylase and lipase. CT scan of the abdomen and pelvis showed cholelithiasis with evidence of cholecystitis. The Emergency Room physician called Dr. Haro, general surgeon, and he recommended the patient be admitted and placed on IV antibiotics. The patient was evaluated later for surgery and it was decided at that time that the patient would go for a laparoscopic cholecystectomy. He had an ultrasound that revealed gallstones and CT scan that revealed inflammatory process around the gallbladder and a normal appendix. He was given Flagyl and Levaquin. He was taken to surgery for a laparoscopic cholecystectomy with cholangiography. Dr. Haro took the patient to surgery with no intraoperative complications. Once discharged from surgery, he was admitted to the Medical/ Surgical Floor. The patient was continued on Levaquin and Flagyl as well as IV fluids. Later, he was started on clear liquids and tolerated those without problem. He was up walking in the hallways. His WBCs normalized today to 9,600 with hemoglobin 12.2 and hematocrit 37.4. His electrolytes were basically within normal limits. His bilirubin normalized to 0.9. He will be discharged home in stable condition. DISCHARGE PLAN: The patient will be discharged home in stable condition. His dietary instructions as well as his bathing instructions and activity level were discussed with the patient by Dr. Haro. He is to go on light duty at work until he is released by Dr. Haro. He has gone home on 7 days of Levaquin and Flagyl as well as some hydrocodone. He is to have a low-fat diet. He is to increase his activity as tolerated. He is to return to the hospital or call Dr. Haro's office for any problems or complications. He has a followup appointment with Dr. Haro on 03/14/18 at 10:30 AM. DISCHARGE MEDICATIONS: 1. Loratadine. 2. Hydrocodone. 3. Levaquin. 4. Metronidazole. #[id number] [facility]
== END 2018-03-12 10:02 | disposition home or self-care (01) | DRG 418 ==
LOC: ER 10:19 → MS 15:20
PROVIDERS: ADMIT Nurse Practitioner; ATTEND Nurse Practitioner Acute Care
PROC: 0FT44ZZ Resection of Gallbladder, Percutaneous Endoscopic Approach (ICD-10-PCS; principal; 2018-03-09)
PROC: BF121ZZ Fluoroscopy of Gallbladder using Low Osmolar Contrast (ICD-10-PCS; 2018-03-09)
DX: K80.00 Calculus of gallbladder with acute cholecystitis without obstruction (principal); K82.A2 Perforation of gallbladder in cholecystitis; Z98.84 Bariatric surgery status; J45.909 Unspecified asthma, uncomplicated; K82.A1 Gangrene of gallbladder in cholecystitis

== ENCOUNTER 2018-06-19 16:47 | Emergency (ER) | payer BC ==
--- NOTE | 2018-06-19 17:02 | ED.PDOC ---
History of Present Illness - General Chief Complaint: Syncope/Near Syncope Stated Complaint: syncope Time Seen by Provider: 06/19/18 17:01 Source: patient Exam Limitations: no limitations - History of Present Illness Initial Comments: Demetrio Zamora 17 y/o male stated he passed out at home and found himself on the floor after waking up. He stated how long he has been lying on the floor could not recall but noticed cut on his nose with slight bleeding staing he might have hit his computer table where he found himself on waking up.Stated having hard time going to sleep at bedtime for the last 1 1/2 years sometimes sleeps for 2 hours.Has [facility] appointment this coming week.Denies weakness,slurred speech,palpitations,chest pains,blurry vision,headaches.Denies history of seizu res or previous syncopal episodes. the last thing he remembered went to buy lunch then went back to his apartment and stayed in his room. Timing/Prior Episodes: no prior history, single episode today Precipitating Factors: other - see hpi Episode Description: see hpi Loss of Consciousness: unsure Current Symptoms: back to normal Allergies/Adverse Reactions: Allergies NO KNOWN ALLERGY Allergy (Verified 03/09/18 15:52) Home Medications: Ambulatory Orders Loratadine [Claritin] 10 mg PO DAILY 03/09/18 Review of Systems - Review of Systems Constitutional: States: no symptoms reported EENTM: States: no symptoms reported Respiratory: States: no symptoms reported Cardiology: States: no symptoms reported Gastrointestinal/Abdominal: States: no symptoms reported Genitourinary: States: no symptoms reported Musculoskeletal: States: no symptoms reported Skin: States: no symptoms reported Neurological: States: see HPI, other - chronic insomnia Hematologic/Lymphatic: States: no symptoms reported Past Medical History (General) - Patient Medical History Hx Seizures: No Hx Stroke: No Hx Dementia: No Hx Asthma: Yes Hx of COPD: No Hx Cardiac Disorders: No Hx Congestive Heart Failure: No Hx Pacemaker: No Hx Hypertension: No Hx Thyroid Disease: No Hx Diabetes: No Hx Gastroesophageal Reflux: No Hx Renal Disease: No Hx Cancer: No Hx of HIV: No Hx Hepatitis C: No Hx MRSA: Yes Surgical History: cholecystectomy - gastric sleeve, other - Vaccination History Hx Tetanus, Diphtheria Vaccination: No Hx Influenza Vaccination: No Hx Pneumococcal Vaccination: No - Social History Hx Tobacco Use: No Hx Chewing Tobacco Use: No Hx Alcohol Use: No Hx Substance Use: No Hx Substance Use Treatment: No Hx Depression: No Hx Physical Abuse: No Hx Emotional Abuse: No Hx Suspected Abuse: No - Female History Patient : No Physical Exam - Physical Exam General Appearance: Alert, Comfortable, No apparent distress, Other - speech fluent Eyes, Ears, Nose, Throat Exam: PERRL/EOMI, normal ENT inspection, TMs normal, pharynx normal Neck: non-tender, full range of motion, supple, normal inspection Cardiovascular/Respiratory: regular rate, rhythm, no M/R/G, normal peripheral pulses, normal breath sounds Gastrointestinal/Abdominal: normal bowel sounds, non tender, soft, no organomegaly Back Exam: normal inspection, no CVA tenderness, no vertebral tenderness Extremity: no pedal edema, no calf tenderness Mental Status: alert, oriented x 3 nutritional services cook Exam: normal hearing, normal speech, PERRL Coordination/Gait: normal gait, negative Romberg's sign Motor/Sensory: no motor deficit, no sensory deficit, no pronator drift, negative Babinski's sign Skin Exam: normal color, warm/dry, other - superficial laceration bridge of nose Progress - Progress Progress: 06/19/18 18:31 Vital Signs 06/19/18 17:01 Temperature 97.3 F L Pulse Rate [ 64 right brachial] Respiratory 20 Rate Blood Pressure 155/81 [left brachial] O2 Sat by Pulse 98 Oximetry - Results/Orders Results/Orders: 06/19/18 17:15 EKG STAT Laboratory Results - last 24 hr 06/19/18 06/19/18 06/19/18 17:16 17:45 17:45 WBC 8.6 RBC 5.59 Hgb 15.3 Hct 46.5 MCV 83.2 MCH 27.3 MCHC 33.0 RDW 13.6 Plt Count 170 MPV 9.3 Absolute Neuts (auto) 6.80 Absolute Lymphs (auto) 0.90 L Absolute Monos (auto) 0.60 Absolute Eos (auto) 0.20 Absolute Basos (auto) 0.00 Neutrophils % 79.1 H Lymphocytes % 11.0 L Monocytes % 6.6 Eosinophils % 2.8 Basophils % 0.5 PT 9.9 INR 0.99 PTT (SP) 27.9 Sodium 138 Potassium 4.1 Chloride 107 Carbon Dioxide 25 Anion Gap 10.1 L BUN 12 Creatinine 0.89 BUN/Creatinine Ratio 13.5 Random Glucose 101 Serum Osmolality 275.6 Calcium 9.3 Magnesium 2.1 Total Bilirubin 1.2 H Direct Bilirubin 0.1 Indirect Bilirubin 1.1 H AST 26 ALT 33 Alkaline Phosphatase 76 L Creatine Kinase 729 H* CK-MB (CK-2) 2.0 CK-MB (CK-2) % Not Reportable Troponin I < 0.02 Serum Total Protein 7.1 Albumin 4.3 Urine Color Yellow Urine Appearance Clear Urine pH 6.0 Ur Specific Leonore >= 1.030 Urine Protein Negative Urine Glucose (UA) Negative Urine Ketones Negative Urine Blood Negative Urine Nitrite Negative Urine Bilirubin Negative Urine Urobilinogen 0.2 Ur Leukocyte Esterase Negative Urine RBC 1-3 Urine WBC 0 Ur Epithelial Cells 5-10 Urine Bacteria Rare Urine Mucus Trace Urine Opiates Screen Negative Urine Barbiturates Negative Ur Phencyclidine Scrn Negative U Amphetamin/Meth Scrn Negative U Benzodiazepines Scrn Negative U Cocaine Metab Screen Negative U Cannabinoids Screen Negative discuss all test results with patient;Advised to keep [facility] appoint ment as scheduled - EKG/XRAY/CT EKG: Martell, Sinus, no ST T wave changes Comments: HR-49 XRAY: chest - no acute abnormalities CT Ordered: Yes - no acute intracranial abnormalities Departure - Departure Clinical Impression: Syncope Qualifiers: Syncope type: unspecified Qualified Code(s): R55 - Syncope and collapse Insomnia Qualifiers: Insomnia type: unspecified Qualified Code(s): G47.00 - Insomnia, unspecified Time of Disposition: 18:54 Disposition: Discharge to Home or Self Care Condition: Good Departure Forms: ED Discharge - Pt. Copy, Patient Portal Self Enrollment Instructions: DI for Syncope in Adults (Fainting), Syncope (Fainting), Tips for Getting Better Sleep, Insomnia (DC), Insomnia Home Medications: Ambulatory Orders Loratadine [Claritin] 10 mg PO DAILY 03/09/18 Additional Instructions: May take OVER THE COUNTER SLEEP AIDES MEDICINE:Melatonin-10 mg tablet at bedtime,Mg Ox-400 mg-one tabet at bedtime,Doxylamine-25mg 1/2-1 tablet at bedtime;Keep appointment with [facility] as scheduled
[2018-06-19] MEDS ORDERED: LACTATED RINGERS 1,000 ML IVS ONE (17:03)
[2018-06-19 17:14] VITALS: TEMP 97.3
--- NOTE | 2018-06-19 17:33 | CT ---
EXAM DESCRIPTION: Head CLINICAL HISTORY: syncope COMPARISON: None available TECHNIQUE: Noncontrast head CT was performed with routine protocol. FINDINGS: Normal arnold-white matter differentiation. Ventricles and sulci are normal for age. No high density hemorrhage, focal edema or shift of the midline. No sulcal effacement. Normal orbital contents. Basilar cisterns appear clear. Intact calvarium with no fracture or lytic lesion. Normal aeration of tympanic cavities and mastoid air cells. No fluid levels in the paranasal sinuses. Skull base appears intact. Symmetrical internal auditory canals. Coronal and sagittal reformatted images confirm the findings. IMPRESSION: No acute intracranial pathologic process. This exam was performed according to our departmental dose-optimization program, which includes automated exposure control, adjustment of the mA and/or kV according to patient size and/or use of iterative reconstruction technique. Total DLP equals 859.97 mGycm. Electronically signed by: Yassine Mckeon MD 06/19/2018 5:33 PM [facility]
--- NOTE | 2018-06-19 17:34 | RAD ---
EXAM DESCRIPTION: Chest,1 View CLINICAL HISTORY: 17 years Male, passed out COMPARISON: None. TECHNIQUE: AP portable chest. FINDINGS: Heart size is normal with normal pulmonary vascularity. No consolidating infiltrate. No pulmonary mass or worrisome nodule. No pneumothorax or pleural effusion. Bones are unremarkable. IMPRESSION: No acute process is identified in the chest. Electronically signed by: Yassine Mckeon MD 06/19/2018 5:33 PM [facility]
[2018-06-19 18:32] VITALS: BP 133/68; O2SAT 100
== END 2018-06-19 19:08 | disposition home or self-care (01) ==
LOC: ER 16:47
DX: R55 Syncope and collapse (principal); G47.00 Insomnia, unspecified; S01.21XA Laceration without foreign body of nose, initial encounter; R00.1 Bradycardia, unspecified; J45.909 Unspecified asthma, uncomplicated; X58.XXXA Exposure to other specified factors, initial encounter; Y92.9 Unspecified place or not applicable
CPT/HCPCS: 36415; 70450; 71045; 80048; 80076; 80307; 81001; 82550; 82553; 84484; 85025; 85610; 85730; 93005; J7120

== ENCOUNTER → 2019-12-31 | Outpatient (CLI) | payer BC | LOC: YCFC.O 14:55 | PROVIDERS: ATTEND Nurse Practitioner | DX: Z03.818 Encounter for observation for suspected exposure to other biological agents ruled out (principal); Z20.828 Contact with and (suspected) exposure to other viral communicable diseases ==